=== PATIENT | female | born 1985 | race African-American/Black ===

== ENCOUNTER 2018-04-20 05:47 | Emergency (ER) | payer OTHER ==
[2018-04-20 06:05] VITALS: Ht 175.3 cm
[2018-04-20 06:59] LABS: BASOPHIL % 1.4 % (0-2); PLATELET COUNT 236 x10^3mcL (130-400); RED CELL DISTRIBUTION WIDTH 12.8 % (11.5-14.5)
[2018-04-20 07:28] LABS: CALCIUM 8.7 mg/dL (8.5-10.1); CARBON DIOXIDE 25.9 mmol/L (21-32); CHLORIDE SERUM 105 mmol/L (98-107); CREATININE SERUM 0.7 mg/dL (0.6-1.0); GFR1 > 60 mL/min; GLUCOSE SERUM 89 mg/dL (74-106); SODIUM SERUM 140 mmol/L (136-145)
[2018-04-20 07:32] LABS: ALKALINE PHOSPHATASE 85 U/L (46-116); ALT/SGPT 26 U/L (14-59); AST/SGOT 17 U/L (15-37); BILIRUBIN TOTAL 0.3 mg/dL (0.20-1.00); LIPASE 135 IU/L (73-393); TOTAL PROTEIN, SERUM 6.9 g/dL (6.4-8.2)
[2018-04-20 07:33] LABS: ALBUMIN 3.3 g/dL (3.4-5.0)
[2018-04-20 08:01] VITALS: BP 145/97
== END 2018-04-20 07:59 | disposition home or self-care (01) ==
LOC: ED 05:47
PROVIDERS: Emergency Medicine
DX: R51 Headache (principal); K29.70 Gastritis, unspecified, without bleeding; L25.9 Unspecified contact dermatitis, unspecified cause
CPT/HCPCS: J2765; J7030; Q0092